=== PATIENT | female | born 1995 | race Two or more races ===

== ENCOUNTER 2020-04-22 10:22 | Observation (INO) | payer OTHER ==
[~2020-04-22] VITALS: Ht 154.9 cm; Wt 48.5 kg
[2020-04-22] MEDS ORDERED: ONDANSETRON HCL INJ 2MG/ML 2ML 2 MG/ML VIAL IV STA (10:27)
[2020-04-22] MEDS ORDERED: PIPERACILLIN/TAZO 4.5 GM 100 ML IV STA (10:27)
[2020-04-22] MEDS ORDERED: MORPHINE SULFATE INJ 4 MG/ML INJ 1ML IV STA (10:27)
[2020-04-22] MEDS ORDERED: SODIUM CHLORIDE 0.9% 1000ML 1,000 ML IV STA (10:27)
--- NOTE | 2020-04-22 10:32 | Emergency Department Note ---
History of Present Illnes History of Present Illness Chief Complaint: Abdominal Complaints History of Present Illness This is a 24 year old female with acute onset of RLQ pain with n/v this AM . Historian: Patient Arrival Mode: Car Onset (how long ago): hour(s) Location: RLQ pain Radiation: Reports non-radiation Severity: moderate Onset quality: gradual Duration (how long): hour(s) Timing of current episode: constant Progression: worsening Chronicity: new Context: Denies recent illness, Denies recent surgery, Denies recent immobilization, Denies recent travel, Denies trauma/injury, Denies new medications, Denies hx of DVT/PE, Denies non-compliance w/ medications, Denies other Relieving factors: none Exacerbating factors: movement Associated symptoms: Reports nausea/vomiting Treatments prior to arrival: none Past Medical/Family History Physician Review I have reviewed the patient's past medical and family history. Any updates have been documented here. Past Medical History Recent Fever: No Clinical Suspicion of Infectio: No New/Unexplained Change in Ment: No Past Medical History: None Other Surgery: Lumpectomy December 2019 Social History Smoking Cessation: Never Smoker Alcohol Use: None Any Illegal Drug Use: No Review of Systems Review of Systems Constitutional: Reports no symptoms EENTM: Reports no symptoms Cardiovascular: Reports no symptoms Respiratory: Reports no symptoms Gastrointestinal: Reports abdominal pain Genitourinary: Reports no symptoms Musculoskeletal: Reports no symptoms Integumentary: Reports no symptoms Neurological: Reports no symptoms Psychological: Reports no symptoms Endocrine: Reports no symptoms Hematological/Lymphatic: Reports no symptoms Physical Exam Related Data Allergies: Coded Allergies: No Known Drug Allergies (Verified Allergy, Unknown, 04/22/20) Triage Vital Signs Vital Signs Date Time Temp Pulse Resp B/P (MAP) Pulse Ox O2 Delivery O2 Flow Rate FiO2 04/22/20 10:26 97.9 128 20 114/99 99 Room Air Vital signs reviewed: Yes Physical Exam CONSTITUTIONAL Constitutional: Present well-nourished, Present ill appearing HENT HENT: Present normocephalic, Present atraumatic, Present oropharynx clear/ moist, Present nose normal HENT L/R: Present left ext ear normal, Present right ext ear normal EYES Eyes: Reports PERRL, Reports conjunctivae normal NECK Neck: Present ROM normal PULMONARY Pulmonary: Present effort normal, Present breath sounds normal CARDIOVASCULAR Cardiovascular: Present heart sounds normal, Present tachycardia GASTROINTESTINAL Abdominal: Present soft, Present tender (RUQ) GENITOURINARY Genitourinary: Present exam deferred SKIN Skin: Present warm, Present dry MUSCULOSKELETAL Musculoskeletal: Present ROM normal NEUROLOGICAL Neurological: Present alert, Present oriented x 3, Present no gross motor or sensory deficits PSYCHOLOGICAL Psychological: Present mood/affect normal, Present judgement normal Results Laboratory Lab results reviewed: Yes Imaging Imaging results reviewed: Yes Impressions [place] [id number] Patient Name: JACINTO EMERY MR #: [id number] : 1995 Age/Sex: 24/F Req #: [id number] [facility] Physician: Ordered by: KATHE HANCOCK DO Report #: [id number] Location: ER Room/Bed: Procedure: [id number] CT/CT ABDOMEN/PELVIS W Exam Date: 04/22/20 Exam Time: 1130 REPORT STATUS: Signed EXAM: CT of the abdomen and pelvis with intravenous contrast HISTORY: ^abd pain ^20200422 ^1130 COMPARISON: None TECHNIQUE: Abdomen and pelvis were scanned utilizing a multidetector helical scanner. Coronal and sagittal reformations were obtained. Scan was performed during the portal venous phase. DOSE REDUCTION: The examination was performed according to the departmental dose-optimization program, which includes automated exposure control, adjustment of the mA and/or kV according to patient size and/or use of iterative reconstruction technique. FINDINGS: LINES and TUBES: None. LOWER THORAX: Unremarkable. HEPATOBILIARY: No focal hepatic lesions. No biliary ductal dilation. GALLBLADDER: No radio-opaque stones or sludge. No wall thickening. SPLEEN: No splenomegaly. PANCREAS: No focal masses or ductal dilatation. ADRENALS: No adrenal nodules. KIDNEYS/URETERS: Kidneys enhance symmetrically. No hydronephrosis. No cystic or solid mass lesions. No stones. GI TRACT: No abnormal distention, wall thickening, or evidence of bowel obstruction. Appendix measures 0.6 cm, with no phlebolith or definite periappendiceal stranding. There are a few shotty adjacent lymph nodes. PELVIC ORGANS/BLADDER: Bilateral ovarian cystic lesions. LYMPH NODES: No lymphadenopathy. VESSELS: Unremarkable. PERITONEUM / RETROPERITONEUM: No free air or fluid. BONES: Unremarkable. SOFT TISSUES: Unremarkable. IMPRESSION: 1. Mildly prominent appendix, without definite signs of appendicitis. Consider early appendicitis in the appropriate clinical setting. 2. Bilateral ovarian cystic lesions, statistically likely normal. If pain localizes to the pelvis, consider ultrasound for further evaluation. Signed by: Irving Rico MD on 04/22/2020 1:30 PM Dictated By: IRVING RICO DO 29 Transcribed By: BLAKE on 04/22/201329 COPY TO: KATHE HANCOCK DO~ Assessment & Plan Medical Decision Making MDM Diff Dx : appendicitis, biliary pathology, UTI, kidney stone, ectopic , kidney infection, ovarian torsion Assessment & Plan Final Impression: (1) Appendicitis Depart Disposition: ADMITTED Last Vital Signs Date Time Temp Pulse Resp B/P (MAP) Pulse Ox O2 Delivery O2 Flow Rate FiO2 04/22/20 10:26 97.9 128 20 114/99 99 Room Air Home Meds Active Scripts [Ceftin] No Conflict Check, 500 MG PO BID for 5 Days Prov:JUSTYNA SCHROEDER NP 04/23/20 Ibuprofen (IBUPROFEN) 600 Mg Tablet, 600 MG PO TIDWM PRN for ABDOMINAL PAIN, #20 Prov:JUSTYNA SCHROEDER NP 04/23/20 Reported Medications Amphet Asp/Amphet/D-Amphet (ADDERALL 15 MG TABLET) 15 Mg Tablet, 15 MG PO DAILY 04/22/20 Medications in the ED Ketorolac Tromethamine 30 mg ONCE ONCE IV Last administered on 04/22/20at 12:19; Admin Dose 30 MG; Start 04/22/20 at 12:12; Stop 04/22/20 at 12:13; Status DC KATHE HANCOCK DO Apr 22, 2020 10:32
[2020-04-22] MEDS ORDERED: DIATRIZOATE MEGL/DIATRIZOA SOD 120 ML BTL PO ONE (10:41)
[2020-04-22] MEDS ORDERED: IOPAMIDOL 370 MG/ML 200 ML INFUS..BTL INJ ONE (10:41)
[2020-04-22] MEDS ORDERED: SODIUM CHLORIDE 0.9% 50ML 50 ML ONE (10:41)
[2020-04-22 10:44] LABS: BASOPHILS # (AUTO) 0.1 (0.0-0.1); BASOPHILS % 0.7 % (0.0-1.0); EOSINOPHILS # (AUTO) 0.1 (0.0-0.4); EOSINOPHILS % 0.8 % (0.0-6.0); HEMATOCRIT 38.2 % (34.2-44.1); HEMOGLOBIN 12.7 g/dL (12.0-16.0); LYMPHOCYTES # (AUTO) 3.3 (1.0-3.2); LYMPHOCYTES % 29.9 % (18.0-39.1); MEAN CORPUSCULAR HGB CONC 33.2 g/dL (31-35); MEAN CORPUSCULAR VOLUME 84.3 fL (81-99); MONOCYTES # (AUTO) 0.9 (0.2-0.8); MONOCYTES % 7.9 % (4.4-11.3); NEUTROPHILS # (AUTO) 6.6 (2.1-6.9); NEUTROPHILS % 60.3 % (38.7-80.0); PLATELET COUNT 397 x10e3/uL (140-360); RED BLOOD COUNT 4.53 x10e6/uL (3.6-5.1); RED CELL DISTRIBUTION WIDTH 13.4 % (11.7-14.4)
--- OUTSIDE RECORDS SUMMARY | 2020-04-22 10:49 | XMS REPORT | Continuity of Care Document ---
Author Author [facility] Organization [facility] Address [address] [place] [address] Phone Unavailable Care Team Providers Care Associate Financial Planner Name Role Phone Unavailable Unavailable Problems This patient has no known problems. Allergies, Adverse Reactions, Alerts This patient has no known allergies or adverse reactions. Medications This patient has no known medications. Procedures This patient has no known procedures. Encounters Start Date/Time End Date/Time Encounter Type Admission Type [facility] Care Department Encounter ID Source 2019-12-14 08:22:00 2019-12-14 08:22:00 Outpatient [facility] [address] [facility] Results This patient has no known results.
[2020-04-22 11:06] LABS: ALANINE AMINOTRANSFERASE 14 IU/L (0-55); ALBUMIN 4.6 g/dL (3.5-5.0); ALBUMIN/GLOBULIN RATIO 1.2 (0.8-2.0); ALKALINE PHOSPHATASE 50 IU/L (40-150); ANION GAP 13.8 mmol/L (8-16); BLOOD UREA NITROGEN 10 mg/dL (7-26); BUN/CREATININE RATIO 11 (6-25); CARBON DIOXIDE 23 mmol/L (22-29); CHLORIDE 104 mmol/L (98-107); CREATININE, SERUM 0.87 mg/dL (0.57-1.11); EST GLOMERULAR FILTRATION RATE > 60 ML/MIN (60-); GLUCOSE 117 mg/dL (74-118); LIPASE 11 U/L (8-78); POTASSIUM 3.8 mmol/L (3.5-5.1); SODIUM 137 mmol/L (136-145)
[2020-04-22] MEDS ORDERED: MORPHINE SULFATE INJ 4 MG/ML INJ 1ML IV ONE (11:31)
[2020-04-22] MEDS ORDERED: MORPHINE SULFATE INJ 4 MG/ML INJ 1ML ONE (11:46)
[2020-04-22] MEDS ORDERED: KETOROLAC TROMETHAMINE 30 MG/ML VIAL IV ONE (12:12)
[2020-04-22 13:01] LABS: BILIRUBIN,URINE NEGATIVE (NEGATIVE); CLARITY,URINE CLEAR (CLEAR); COLOR,URINE ORANGE (YELLOW); KETONES,URINE NEGATIVE (NEGATIVE); LEUKOCYTE ESTERASE ,URINE NEGATIVE (NEGATIVE); NITRITE,URINE POSITIVE (NEGATIVE); PROTEIN,URINE DIPSTICK NEGATIVE (NEGATIVE); URINE UROBILINOGEN 0.2 mg/dL (0.2 - 1)
[2020-04-22 13:05] LABS: AMPHETAMINES SCREEN,URINE POSITIVE (NEGATIVE); BENZODIAZEPINES SCREEN,URINE NEGATIVE (NEGATIVE); PHENCYCLIDINE SCREEN,URINE NEGATIVE (NEGATIVE); PREGNANCY TEST, URINE NEGATIVE (NEGATIVE)
[2020-04-22 13:15] LABS: BACTERIA,URINE MODERATE /HPF; EPITHELIAL CELLS,URINE FEW /LPF; MUCUS,URINE FEW (RARE)
--- NOTE | 2020-04-22 13:33 | Diagnostic Imaging Report ---
EXAM: CT of the abdomen and pelvis with intravenous contrast HISTORY: ^abd pain ^20200422 ^1130 COMPARISON: None TECHNIQUE: Abdomen and pelvis were scanned utilizing a multidetector helical scanner. Coronal and sagittal reformations were obtained. Scan was performed during the portal venous phase. DOSE REDUCTION: The examination was performed according to the departmental dose-optimization program, which includes automated exposure control, adjustment of the mA and/or kV according to patient size and/or use of iterative reconstruction technique. FINDINGS: LINES and TUBES: None. LOWER THORAX: Unremarkable. HEPATOBILIARY: No focal hepatic lesions. No biliary ductal dilation. GALLBLADDER: No radio-opaque stones or sludge. No wall thickening. SPLEEN: No splenomegaly. PANCREAS: No focal masses or ductal dilatation. ADRENALS: No adrenal nodules. KIDNEYS/URETERS: Kidneys enhance symmetrically. No hydronephrosis. No cystic or solid mass lesions. No stones. GI TRACT: No abnormal distention, wall thickening, or evidence of bowel obstruction. Appendix measures 0.6 cm, with no phlebolith or definite periappendiceal stranding. There are a few shotty adjacent lymph nodes. PELVIC ORGANS/BLADDER: Bilateral ovarian cystic lesions. LYMPH NODES: No lymphadenopathy. VESSELS: Unremarkable. PERITONEUM / RETROPERITONEUM: No free air or fluid. BONES: Unremarkable. SOFT TISSUES: Unremarkable. IMPRESSION: 1. Mildly prominent appendix, without definite signs of appendicitis. Consider early appendicitis in the appropriate clinical setting. 2. Bilateral ovarian cystic lesions, statistically likely normal. If pain localizes to the pelvis, consider ultrasound for further evaluation. Signed by: Irving Rico MD on 04/22/2020 1:30 PM
[2020-04-22] MEDS ORDERED: ONDANSETRON HCL INJ 2MG/ML 2ML 2 MG/ML VIAL IV PRN (13:45)
[2020-04-22] MEDS ORDERED: MORPHINE SULFATE 2 MG/ML SYR 1ML IV PRN (13:45)
--- OUTSIDE RECORDS SUMMARY | 2020-04-22 13:55 | XMS REPORT | Continuity of Care Document ---
Author Author [facility] t Organization [facility] Address [address] [place] [address] [address] [place] [address] Phone Unavailable Care Team Providers Care Professor Of Poultry Science Name Role Phone KATHE HANCOCK Unavailable Problems This patient has no known problems. Allergies, Adverse Reactions, Alerts This patient has no known allergies or adverse reactions. Medications This patient has no known medications. Procedures This patient has no known procedures. Encounters Start Date/Time End Date/Time Encounter Type Admission Type [facility] Care Department Encounter ID Source 2019-12-14 08:22:00 2019-12-14 08:22:00 Outpatient [facility] [address] [facility] Results Test Description Test Time Test Comments Results Result Comments Source CT ABDOMEN/PELVIS W 2020-04-22 13:21:00 [facility] 1995 Sex: F [facility] [address] [place], [place] [address] Patient Name: JACINTO EMERY MR #: [id number] : 1995 Age/Sex: 24/F Req #: [id number] Adm Physician: Ordered by: KATHE HANCOCK DO Report #: [id number] Location: ER Room/Bed: Procedure: [id number] CT/CT ABDOMEN/PELVIS W Exam Date: 04/22/20 Exam Time: 1130 REPORT STATUS: Signed EXAM: CT of the abdomen and pelvis with intravenous contrast HISTORY: abd pain 20200422 COMPARISON: None TECHNIQUE: Abdomen and pelvis were scanned utilizing a multidetector helical scanner. Coronal and sagittal reformations were obtained. Scan was performed during the portal venous phase. DOSE REDUCTION: The examination was performed according to the departmental dose- optimization program, which includes automated exposure control, adjustment of the mA and/or kV according to patient size and/or use of iterative reconstruction technique. FINDINGS: LINES and TUBES: None. LOWER THORAX: Unremarkable. HEPATOBILIARY: No focal hepatic lesions. No biliary ductal dilation. GALLBLADDER: No radio-opaque stones or sludge. No wall thickening. SPLEEN: No splenomegaly. PANCREAS: No focal masses or ductal dilatation. ADRENALS: No adrenal nodules. KIDNEYS/URETERS: Kidneys enhance symmetrically. No hydronephrosis. No cystic or solid mass lesions. No stones. GI TRACT: No abnormal distention, wall thickening, or evidence of bowel obstruction. Appendix measures 0.6 cm, with no phlebolith or definite periappendiceal stranding. There are a few shotty adjacent lymph nodes. PELVIC ORGANS/BLADDER: Bilateral ovarian cystic lesions. LYMPH NODES: No lymphadenopathy. VESSELS: Unremarkable. PERITONEUM / RETROPERITONEUM: No free air or fluid. BONES: Unremarkable. SOFT TISSUES: Unremarkable. IMPRESSION: 1. Mildly prominent appendix, without definite signs of appendicitis. Consider early appendicitis in the appropriate clinical setting. 2. Bilateral ovarian cystic lesions, statistically likely normal. If pain localizes to the pelvis, consider ultrasound for further evaluation. Signed by: Irving Rico MD on 04/22/2020 1:30 PM Dictated By: IRVING RICO DO 1330 Transcribed By: BLAKE on 04/22/201329 COPY TO: KATHE HANCOCK DO
[2020-04-22] MEDS ORDERED: MORPHINE SULFATE INJ 4 MG/ML INJ 1ML IV PRN (14:00)
[2020-04-22 14:49] VITALS: BP 99/70
[2020-04-22] MEDS: SODIUM CHLORIDE 0.9% 1000ML 1,000 ML IV SCH ×2 (14:49→23:16)
--- NOTE | 2020-04-22 14:55 | NUR ---
Received report from URSULA Forde in ER at 1418. Patient arrived to unit at 1430. Patient is AOx3. Patient IV C/D/I in left AC, started IV fluids. Patient oriented to room, procedures, plan of care, white board, hourly rounding, bedside shift report, and given opportunity to ask questions. Patient verbalized understanding. Patient has call light and all personal items within reach.
[2020-04-22] MEDS ORDERED: ADDERALL 15 MG15 MG PO (15:03)
[2020-04-22 15:32] VITALS: BP 99/70
--- NOTE | 2020-04-22 17:52 | Diagnostic Imaging Report ---
EXAM: Transabdominal and Transvaginal Pelvic Ultrasound INDICATION: Pelvic pain. COMPARISON: Same day CT of the abdomen/pelvis. TECHNIQUE: Grayscale transverse and sagittal transabdominal and transvaginal images were obtained of the pelvis. Transvaginal imaging was medically necessary to better evaluate the endometrium and the adnexa. CLINICAL HISTORY: 24 year old A0; last menstrual period: 03/30/2020. FINDINGS: Uterus Orientation: Retroflexed Size: 5.7 x 3.6 x 5.2 cm, Normal Mass: None Cervix: Normal Endometrium: Thickness: 0.9 cm, Normal. Appearance: Homogeneous echotexture without focal thickening. Right ovary: Size: 2.4 x 2.4 x 2.0 cm Mass/Cyst: None Left ovary: Size: 3.1 x 2.4 x 2.0 cm Mass/Cyst: None Doppler with spectral analysis: Normal flow to bilateral ovaries. Adnexa: Normal Cul-de-sac: No free fluid IMPRESSION: No evidence of ovarian torsion. No sonographic abnormality identified. Signed by: Fabian Hodges MD on 04/22/2020 5:48 PM
[2020-04-22] MEDS ORDERED: CEFTRIAXONE SOD 1 GM/NS 50 ML 50 ML IV SCH (19:00)
--- NOTE | 2020-04-22 20:00 | NUR ---
Received change of shift report from AM nurses. Walking rounds completed.
[2020-04-22 20:19] VITALS: BP 96/59
[2020-04-22 20:21] VITALS: BP 96/59
[2020-04-22] MEDS ORDERED: METOPROLOL TARTRATE INJ 1 MG/ML VIAL IV PRN (20:30)
[2020-04-22] MEDS ORDERED: ACETAMINOPHEN 325 MG TAB PO PRN (20:30)
[2020-04-22 23:59] VITALS: BP 97/57
--- NOTE | 2020-04-23 | NUR ---
Patient denies pain at this time. Patient up ambulating to bathroom with no difficulty noted.
--- NOTE | 2020-04-23 03:04 | NUR ---
Patient resting quitly at this time. Continue monitor.
--- NOTE | 2020-04-23 03:06 | NUR ---
Patient refused SCD.
[2020-04-23 05:13] VITALS: BP 96/65
[2020-04-23 06:32] LABS: BASOPHILS # (AUTO) 0.1 (0.0-0.1); BASOPHILS % 0.8 % (0.0-1.0); EOSINOPHILS # (AUTO) 0.2 (0.0-0.4); HEMATOCRIT 30.1 % (34.2-44.1); HEMOGLOBIN 10.1 g/dL (12.0-16.0); LYMPHOCYTES # (AUTO) 2.7 (1.0-3.2); LYMPHOCYTES % 34.4 % (18.0-39.1); MEAN CORPUSCULAR HEMOGLOBIN 29.1 pg (28-32); MEAN CORPUSCULAR HGB CONC 33.6 g/dL (31-35); MEAN CORPUSCULAR VOLUME 86.7 fL (81-99); MONOCYTES # (AUTO) 0.5 (0.2-0.8); MONOCYTES % 6.7 % (4.4-11.3); NEUTROPHILS # (AUTO) 4.4 (2.1-6.9); NEUTROPHILS % 55.8 % (38.7-80.0); PLATELET COUNT 261 x10e3/uL (140-360); RED BLOOD COUNT 3.47 x10e6/uL (3.6-5.1); RED CELL DISTRIBUTION WIDTH 14.1 % (11.7-14.4)
[2020-04-23 07:03] LABS: ALANINE AMINOTRANSFERASE 10 IU/L (0-55); ALBUMIN 3.2 g/dL (3.5-5.0); ALBUMIN/GLOBULIN RATIO 1.3 (0.8-2.0); ALKALINE PHOSPHATASE 37 IU/L (40-150); ANION GAP 11.3 mmol/L (8-16); BLOOD UREA NITROGEN 10 mg/dL (7-26); BUN/CREATININE RATIO 15 (6-25); CALCIUM 8.2 mg/dL (8.4-10.2); CARBON DIOXIDE 21 mmol/L (22-29); CHLORIDE 113 mmol/L (98-107); CREATININE, SERUM 0.67 mg/dL (0.57-1.11); EST GLOMERULAR FILTRATION RATE > 60 ML/MIN (60-); GLUCOSE 83 mg/dL (74-118); POTASSIUM 4.3 mmol/L (3.5-5.1); SODIUM 141 mmol/L (136-145)
[2020-04-23] MEDS ORDERED: FAMOTIDINE 20 MG/2 ML VIAL IV SCH (07:30)
[2020-04-23] MEDS ORDERED: CEFTIN PO (07:44)
[2020-04-23] MEDS ORDERED: IBUPROFEN600 MG PO (07:44)
[2020-04-23 08:15] VITALS: BP 101/60
[2020-04-23 08:58] VITALS: BP 101/60
[2020-04-23] MEDS ORDERED: PIPER-TAZ 3.375 GM 50 ML IV SCH (20:54)
--- NOTE | 2020-04-24 03:23 | Discharge Summary ---
ADMISSION DIAGNOSES: Right lower quadrant abdominal pain and UTI present on admission. DISCHARGE DIAGNOSES: Right lower quadrant abdominal pain and UTI present on admission plus rule out appendicitis. HISTORY: None. SURGICAL HISTORY: None. SOCIAL HISTORY: Ovarian cyst. SOCIAL HISTORY: None. HOSPITAL COURSE: A 24-year-old female admits with one day of right lower quadrant abdominal pain which is radiating to her groin. On admission, CT of the abdomen and pelvis showed mildly prominent appendix without definite signs of appendicitis, bilateral ovarian cystic lesion. Transvaginal ultrasound was then ordered, which showed no evidence of ovarian torsion and no sonographic abnormality identified. The patient's UA was positive for WBC and RBC. Urine drug screen was positive for amphetamines and opiates. The patient was started on Rocephin and her white count became normal, so she will dischargehome with prescriptions for Ceftin for the UTI and ibuprofen for pain. Surgery was consulted, who cleared the patient for discharge and said that this is not appendicitis. She will follow up with primary care in 1 to 2 weeks. The patient understands instructions and agrees to plan. Dictated by Ana Vega NP MD ACRINE Cheng/MODL /[id number]
== END 2020-04-23 09:25 | disposition home or self-care (01) ==
LOC: ER 10:46 → ERHOLD 13:39 → MED/SURG 14:30
PROVIDERS: ADMIT Internal Medicine; ATTEND Internal Medicine
DX: N39.0 Urinary tract infection, site not specified (principal); Z11.59 Encounter for screening for other viral diseases
CPT/HCPCS: 36415 ×2; 74177; 76830; 76856; 80053 ×2; 80307; 81001; 81025; 83690; 84702; 85025 ×2; 87086; 96361 ×2; 99284; G0378 ×2; J0696; J1885; J2270; J2405; J2543; J7030; Q9963; Q9967; U0002